=== PATIENT | male | born 1980 | race Caucasian/White ===

== ENCOUNTER 2019-05-21 21:54 | Emergency (ER) | payer MEDICAID ==
[2019-05-21] MEDS ORDERED: Acetaminophen/oxyCODONE 325-5 MG Tab PO STA (21:55)
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
== END 2019-05-21 23:35 | disposition home or self-care (01) ==
LOC: JP.ED 21:54
DX: M25.522 Pain in left elbow (principal); M25.552 Pain in left hip; M54.5 Low back pain; Z79.899 Other long term (current) drug therapy
CPT/HCPCS: 72100; 73070; 73502; 99283; A9270

== ENCOUNTER 2019-05-23 13:11 | Emergency (ER) | payer SELFPAY ==
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
--- NOTE | 2019-05-23 14:25 | CRLCT ---
Indication: Pain left side of neck. Technique: CT from the skullbase to the thoracic inlet is obtained without contrast. Please note that all CT scans at this facility use dose modulation, iterative reconstruction, and/or weight-based dosing when appropriate to reduce radiation dose to as low as reasonably achievable. Comparison: None. Findings: The vertebral bodies and posterior elements are intact. Disc spaces are normal. Facets are unremarkable. Spinal canal and neural foramina at all levels are widely patent. Soft tissues are normal. Lung apices are clear. Impression: Normal CT cervical spine. No evidence of cervical spondylosis or fracture. Please note that all CT scans at this facility use dose modulation, iterative reconstruction, and/or weight-based dosing when appropriate to reduce radiation dose to as low as reasonably achievable. Dictated by Matheus Jerry MD @ May 23 2019 2:19PM Signed by Dr. Matheus Jerry @ May 23 2019 2:23PM
== END 2019-05-23 15:09 | disposition home or self-care (01) ==
LOC: JP.ED 13:11
DX: M62.838 Other muscle spasm (principal); S59.902A Unspecified injury of left elbow, initial encounter; Z79.899 Other long term (current) drug therapy; V59.9XXA Occupant (driver) (passenger) of pick-up truck or van injured in unspecified traffic accident, initial encounter
CPT/HCPCS: 72125; 99284-25

== ENCOUNTER 2019-10-02 03:01 | Emergency (ER) | payer MEDICAID, OTHER ==
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
[2019-10-02] MEDS ORDERED: Sodium Chloride 0.9% 10 ML Syringe FLUSH PRN ×2 (03:56→05:57)
[2019-10-02] MEDS ORDERED: Promethazine 12.5 MG in Sodium Chloride 0.9% 50 ML IV PRN (03:58)
[2019-10-02] MEDS ORDERED: Sodium Chloride 0.9% 1,000 ML IV ONE ×2 (03:58→05:31)
[2019-10-02] MEDS ORDERED: diphenhydrAMINE 50 MG/ML SDV IVPUSH ONE (04:00)
[2019-10-02] MEDS ORDERED: fentaNYL 100 MCG/2 ML SDV IVPUSH ONE ×2 (04:37→05:12)
[2019-10-02] MEDS ORDERED: Iopamidol 612 MG/ML 500 ML Multipack Bottle IV ONE (05:57)
--- NOTE | 2019-10-02 06:40 | CRLCT ---
Indication: Left upper quadrant pain Technique: A CT volumetric acquisition was performed of the abdomen and pelvis during bolus infusion 135 cc of Isovue-300 nonionic intravenous contrast. Comparison: None Findings: There is minimal dependent subpleural atelectasis at the lung bases. There is no evidence of pleural fluid. The spleen demonstrates normal size and uniform enhancement with no evidence of tissue infarction. There is no evidence of inflammation or mass within the pancreas. The liver appears normal. The gallbladder and bile ducts are of normal size. The adrenal glands have normal morphology. There is a small benign cortical cyst within the lower pole left kidney. There is no evidence of retroperitoneal lymphadenopathy within the abdomen and pelvis. The appendix is visualized in the right lower quadrant and appears normal. There is no evidence of obstruction or inflammation within the small intestine. The colon is contracted and there is no evidence of a suspicious mass or diverticulitis. The prostate gland and urinary bladder appear normal. The ventral abdominal musculature appears intact Impression: No acute process identified. In particular no evidence of splenic infarction or pancreatitis. Dictated by Matheus Aponte MD @ 10/02/2019 6:38:42 AM Please note that all CT scans at this facility use dose modulation, iterative reconstruction, and/or weight-based dosing when appropriate to reduce radiation dose to as low as reasonably achievable. Dictated by: Matheus Aponte MD @ 10/02/2019 06:38:48 (Electronically Signed)
== END 2019-10-02 07:16 | disposition home or self-care (01) ==
LOC: JP.ED 03:01
DX: K29.00 Acute gastritis without bleeding (principal); I10 Essential (primary) hypertension; F41.0 Panic disorder [episodic paroxysmal anxiety]; F32.9 Major depressive disorder, single episode, unspecified; Z79.899 Other long term (current) drug therapy
CPT/HCPCS: 36415; 74177; 80053; 83690; 85025; 96361; 96374; 96375; 96376; 99284; J1200; J2550; J3010; J7030; J7050; Q9967

== ENCOUNTER 2019-11-14 23:42 | Emergency (ER) | payer MEDICAID ==
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
[2019-11-15] MEDS ORDERED: LORazepam 1 MG Tab PO ONE (01:09)
== END 2019-11-15 02:41 | disposition home or self-care (01) ==
LOC: JP.ED 23:42
DX: F43.10 Post-traumatic stress disorder, unspecified (principal); F10.10 Alcohol abuse, uncomplicated; F13.10 Sedative, hypnotic or anxiolytic abuse, uncomplicated; I10 Essential (primary) hypertension; F41.0 Panic disorder [episodic paroxysmal anxiety]; F32.9 Major depressive disorder, single episode, unspecified; F17.210 Nicotine dependence, cigarettes, uncomplicated; Z79.899 Other long term (current) drug therapy
CPT/HCPCS: 36415; 80053; 80305; 80307; 81001; 85025; 99284; A9270

== ENCOUNTER 2020-02-22 10:57 | Emergency (ER) | payer MEDICAID ==
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
[2020-02-22] MEDS ORDERED: Sodium Chloride 0.9% 1,000 ML IV SCH ×2 (11:45→12:45)
[2020-02-22] MEDS ORDERED: Ketorolac 30 MG/ML SDV IVPUSH ONE (13:07)
[2020-02-22] MEDS ORDERED: Tamsulosin 0.4 MG Cap.ER PO ONE (14:57)
== END 2020-02-22 15:30 | disposition home or self-care (01) ==
LOC: JP.ED 10:57
DX: R33.9 Retention of urine, unspecified (principal); E86.0 Dehydration; I10 Essential (primary) hypertension; F41.9 Anxiety disorder, unspecified; F32.9 Major depressive disorder, single episode, unspecified; F90.9 Attention-deficit hyperactivity disorder, unspecified type; Z79.899 Other long term (current) drug therapy
CPT/HCPCS: 36415; 51702; 51798; 80053; 81001; 85025; 96361; 96374; 99283; A9270; J1885; J7030

== ENCOUNTER 2020-03-06 12:52 | Emergency (ER) | payer MEDICAID ==
[2020-03-06] MEDS ORDERED: Sodium Chloride 0.9% 10 ML Syringe FLUSH PRN (12:53)
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
--- NOTE | 2020-03-06 13:27 | CT ---
Head wo Cont CLINICAL HISTORY: First time seizure COMPARISON: None TECHNIQUE: Transverse scans were obtained from the base of the skull through the vertex without IV contrast on a multislice, multidetector CT scanner. Auto dosage reduction and iterative reconstruction techniques employed. FINDINGS: No focal abnormal parenchymal densities are identified. There is no mass effect, hemorrhage, or extraaxial collection. The basal cisterns and sulci over the convexities are normal. The ventricles are normal for age. IMPRESSION: No acute intracranial process
[2020-03-06] MEDS ORDERED: NS + KCl 20mEq/L 1,000 ML IV SCH (14:00)
[2020-03-06] MEDS ORDERED: ALPRAZolam 0.25 MG Tab PO ONE (14:06)
[2020-03-06] MEDS ORDERED: ALPRAZolam 0.5 MG Tab PO ONE (14:15)
[2020-03-06] MEDS ORDERED: Bisacodyl 10 MG Supp RECTAL ONE (16:57)
== END 2020-03-06 17:16 | disposition home or self-care (01) ==
LOC: JP.ED 12:52
DX: R56.9 Unspecified convulsions (principal); F13.239 Sedative, hypnotic or anxiolytic dependence with withdrawal, unspecified; F12.90 Cannabis use, unspecified, uncomplicated; R42 Dizziness and giddiness; I10 Essential (primary) hypertension; F41.9 Anxiety disorder, unspecified; F32.9 Major depressive disorder, single episode, unspecified; F90.9 Attention-deficit hyperactivity disorder, unspecified type; Z91.19 Patient's noncompliance with other medical treatment and regimen; Z79.899 Other long term (current) drug therapy
CPT/HCPCS: 36415; 70450; 80048; 80305; 80307; 81001; 83735; 85027; 99283; 99285; A9270; J3480

== ENCOUNTER 2020-05-05 08:57 | Emergency (ER) | payer MEDICAID ==
[2020-05-05] MEDS ORDERED: HYDROmorphone 1 MG/ML Syringe IM ONE (09:21)
[2020-05-05] MEDS ORDERED: Cyclobenzaprine 10 MG Tab PO ONE (09:21)
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
[2020-05-05] MEDS ORDERED: fentaNYL 100 MCG/2 ML SDV IM ONE ×2 (10:16→12:46)
[2020-05-05] MEDS ORDERED: methylPREDNISolone Sodium Succinate 40 MG/1 ML SDV IM ONE (10:17)
[2020-05-05] MEDS ORDERED: fentaNYL 100 MCG/2 ML SDV IVPUSH ONE (12:40)
[2020-05-05] MEDS ORDERED: Ketamine 500 MG/5 ML MDV NAS ONE ×3 (12:42→13:45)
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
== END 2020-05-05 14:48 | disposition home or self-care (01) ==
LOC: JP.ED 08:57
DX: M54.5 Low back pain (principal); I10 Essential (primary) hypertension; F32.9 Major depressive disorder, single episode, unspecified; F41.9 Anxiety disorder, unspecified; Z90.49 Acquired absence of other specified parts of digestive tract; Z79.899 Other long term (current) drug therapy
CPT/HCPCS: 96372; 99284; A9270; J1170; J2920; J3010